=== PATIENT | male | born 1990 | race Caucasian/White ===

== ENCOUNTER → 2018-11-11 14:23 | Outpatient (CLI) | payer OTHER, SELFPAY | PROVIDERS: Visit Provider Physician Assistant | DX: R10.9 Unspecified abdominal pain (principal) | CPT/HCPCS: 87077; 87086 ==

== ENCOUNTER → 2020-04-11 14:29 | Outpatient (CLI) | payer OTHER, SELFPAY ==
[2020-04-11 15:13] LABS: Cholesterol 152 mg/dL (140-199); HDL Cholesterol 73 mg/dL (40-60); LDL Cholesterol Calculated 57 mg/dL (<100); Triglycerides 112 mg/dL (35-150)
[2020-04-13 19:48] LABS: Vitamin D 25 Hydroxy (D3) 18.9 ng/mL (30.0-100.0)
== END ==
PROVIDERS: PCP Student in an Organized Health Care Education/Training Program; Referring Provider Student in an Organized Health Care Education/Training Program; Visit Provider Student in an Organized Health Care Education/Training Program
DX: E55.9 Vitamin D deficiency, unspecified (principal); Z13.220 Encounter for screening for lipoid disorders
CPT/HCPCS: 36415; 80061; 82306

== ENCOUNTER → 2022-02-25 13:59 | Outpatient (CLI) | payer SELFPAY ==
--- NOTE | 2022-02-25 14:02 | DI.RAD.S_ITS ---
PROCEDURE: XR LUMBAR SPINE 2-3V INDICATIONS: acute back pain, injury R side TECHNIQUE: 3 views of the lumbar spine were acquired. COMPARISON: None. FINDINGS: Bones: 5 [id number] vertebrae are present. There is normal bony alignment. No vertebral body compression fractures. No suspicious bony lesions. Soft tissues: Overlying bowel gas pattern is normal. No suspicious soft tissue calcifications. IMPRESSION: Lumbar spine radiographs Approved by: Man Rodas M.D. on 02/25/2022 at 15:36
--- NOTE | 2022-02-25 14:02 | DI.RAD.S_ITS ---
PROCEDURE: XR SACRUM COCCYX MIN 2V INDICATIONS: acute back pain, injury R side TECHNIQUE: 3 views of the sacrum and coccyx acquired. COMPARISON: None. FINDINGS: Bones: No fractures or dislocations. No suspicious bony lesions. Soft tissues: Visualized bowel gas pattern is normal. No suspicious soft tissue densities. IMPRESSION: Unremarkable sacral and coccygeal radiographs Approved by: Man Rodas M.D. on 02/25/2022 at 13:45
== END ==
PROVIDERS: Referring Provider Student in an Organized Health Care Education/Training Program; Visit Provider Student in an Organized Health Care Education/Training Program
DX: M54.50 Low back pain, unspecified (principal); G89.11 Acute pain due to trauma
CPT/HCPCS: 72100; 72220